=== PATIENT | female | born 1980 | race Caucasian/White ===

== ENCOUNTER 2017-08-15 20:30 | Inpatient (IN) | payer OTHER ==
[~2017-08-15] VITALS: Ht 167.6 cm; Wt 84.8 kg
[2017-08-15] MEDS ORDERED: OXYTOCIN 30 UNITS/LACT RINGERS 500 ML IV PRN (22:25)
[2017-08-15] MEDS ORDERED: OXYTOCIN 30 UNITS/LACT RINGERS 500 ML IV ONE (22:25)
[2017-08-15] MEDS ORDERED: RINGERS SOLUTION,LACTATED 1,000 ML IV PRN (22:25)
[2017-08-15] MEDS ORDERED: CITRIC ACID/SODIUM CITRATE 30 ML SOLUTION UDCUP PO PRN (22:30)
[2017-08-15] MEDS ORDERED: FentaNYL CITRATE-PF 100 MCG/2 ML VIAL IVP PRN (22:30)
[2017-08-15] MEDS ORDERED: METOCLOPRAMIDE HCL 5 MG/ML 2 ML VIAL IVP PRN (22:30)
[2017-08-15 22:51] VITALS: BP 115/62
[2017-08-15 22:51] LABS: BASOPHILS % (AUTO) 0.1 % (0.0-2.0); EOSINOPHILS % (AUTO) 0.7 % (1.0-6.0); HEMATOCRIT 34.2 % (36-46); HEMOGLOBIN 11.8 g/dL (12.0-16.0); LYMPHOCYTES # (AUTO) 2.1 K/uL (1.0-4.8); LYMPHOCYTES % (AUTO) 25.5 % (22.0-44.0); MEAN CORPUSCULAR HEMOGLOBIN 29.4 pg (26.0-34.0); MEAN CORPUSCULAR HGB CONC 34.6 G/dL (31.0-37.0); MEAN CORPUSCULAR VOLUME 85 fL (80-100); MONOCYTES # (AUTO) 0.8 K/uL (0.1-1.0); MONOCYTES % (AUTO) 10.2 % (2.0-9.0); NEUTROPHILS # (AUTO) 5.2 K/uL (1.8-7.7); NEUTROPHILS % (AUTO) 63.5 % (40.0-70.0); PLATELET COUNT (AUTO)-OB 180 K/uL (150-450); RED BLOOD CELL COUNT(AUTO) 4.03 MIL/uL (4.00-5.20); RED CELL DISTRIBUTION WIDTH 13.7 % (11.5-14.5)
[2017-08-15] MEDS ORDERED: PRENATALVIT PO (22:54)
[2017-08-16] MEDS: RINGERS SOLUTION,LACTATED 1,000 ML IV SCH ×3 (02:04→07:17)
[2017-08-16] MEDS ORDERED: ROPIVACAINE HCL/PF 0.2% 100 ML ED ONE (07:00)
[2017-08-16] MEDS ORDERED: LIDOCAINE HCL/PF 2% 5 ML VIAL ONE (07:00)
[2017-08-16] MEDS ORDERED: ROPIVACAINE HCL/PF 0.2% 100 ML ED PRN (07:24)
[2017-08-16] MEDS ORDERED: DiphenhydrAMINE HCL 50 MG/ML VIAL IVP PRN (07:30)
[2017-08-16] MEDS ORDERED: NALBUPHINE HCL 10 MG/ML VIAL IVP PRN (07:30)
[2017-08-16] MEDS ORDERED: ONDANSETRON HCL 4 MG/2 ML VIAL IVP PRN (07:30)
[2017-08-16] MEDS ORDERED: OXYGEN THERAPY IH SCH (08:00)
[2017-08-16] MEDS ORDERED: LIDOCAINE HCL/PF 1% 30 ML VIAL ONE (08:55)
[2017-08-16] MEDS ORDERED: BUPIVACAINE HCL/PF 0.5% 10 ML VIAL ONE (09:01)
[2017-08-16] MEDS ORDERED: GLYCERIN/WITCH HAZEL LEAF 40 PADS JAR TP PRN (12:30)
[2017-08-16] MEDS ORDERED: BENZOCAINE 20%/MENTHOL 56 GM SPRAY CANISTER TP PRN (12:30)
[2017-08-16] MEDS ORDERED: OxyCODONE HCL/ACETAMINOPHEN 5-325 MG TABLET PO PRN (12:30)
[2017-08-16] MEDS ORDERED: LANOLIN 7 GM OINTMENT TP PRN (12:30)
[2017-08-16] MEDS: IBUPROFEN 800 MG TABLET PO PRN (21:19)
[2017-08-16] MEDS: MAGNESIUM HYDROXIDE SUSPENSION 30 ML UDCUP PO PRN (21:19)
[2017-08-17] MEDS: OxyCODONE HCL/ACETAMINOPHEN 5-325 MG TABLET PO PRN ×2 (00:05→09:26)
[2017-08-17] MEDS: IBUPROFEN 800 MG TABLET PO PRN ×2 (03:03→09:26)
[2017-08-17 06:53] LABS: BASOPHILS % (AUTO) 0.2 % (0.0-2.0); EOSINOPHILS % (AUTO) 0.6 % (1.0-6.0); HEMATOCRIT 28.9 % (36-46); HEMOGLOBIN 10.2 g/dL (12.0-16.0); LYMPHOCYTES # (AUTO) 2.5 K/uL (1.0-4.8); MEAN CORPUSCULAR HEMOGLOBIN 29.9 pg (26.0-34.0); MEAN CORPUSCULAR HGB CONC 35.2 G/dL (31.0-37.0); MEAN CORPUSCULAR VOLUME 85 fL (80-100); MONOCYTES # (AUTO) 0.9 K/uL (0.1-1.0); NEUTROPHILS # (AUTO) 7.3 K/uL (1.8-7.7); NEUTROPHILS % (AUTO) 68.2 % (40.0-70.0); PLATELET COUNT (AUTO)-OB 157 K/uL (150-450); RED CELL DISTRIBUTION WIDTH 13.4 % (11.5-14.5)
[2017-08-17] MEDS: MAGNESIUM HYDROXIDE SUSPENSION 30 ML UDCUP PO PRN (09:25)
[2017-08-17] MEDS ORDERED: IBUP-2070 PO (10:01)
[2017-08-17] MEDS ORDERED: FERR-89 PO (10:02)
[2017-08-17] MEDS ORDERED: DSS100 PO (10:02)
== END 2017-08-17 12:45 | disposition home or self-care (01) | DRG 775 ==
LOC: 4S 20:30 → OBSVTOIN 20:30
PROVIDERS: ADMIT Obstetrics & Gynecology; ATTEND Obstetrics & Gynecology
PROC: 10E0XZZ Delivery of Products of Conception, External Approach (ICD-10-PCS; principal; 2017-08-16)
PROC: 3E0R3BZ Introduction of Anesthetic Agent into Spinal Canal, Percutaneous Approach (ICD-10-PCS; 2017-08-16)
PROC: 00HU33Z Insertion of Infusion Device into Spinal Canal, Percutaneous Approach (ICD-10-PCS; 2017-08-16)
DX: O80 Encounter for full-term uncomplicated delivery (principal); Z37.0 Single live birth; Z3A.39 39 weeks gestation of pregnancy
CPT/HCPCS: 86850; 86900; 86901; J2590; J2795; J3010; J3490; J7120